=== PATIENT | female | born 1965 | race Caucasian/White ===

== ENCOUNTER 2019-05-30 16:37 | Inpatient (IN) | payer MEDICAID ==
[~2019-05-30] VITALS: Ht 162.6 cm; Wt 108.0 kg
[~2019-05-30 16:37] MED LIST: AMLO5TAB4 PO; METF-416 PO; SIMV20TA6 PO
[2019-05-30] MEDS ORDERED: SODIUM CHLORIDE 0.9% 1,000 ML IV ONE (19:05)
[2019-05-30] MEDS ORDERED: ONDANSETRON HCL 4MG/2ML INJ IV STA (19:05)
[2019-05-30] MEDS ORDERED: MAGNESIUM/ALUMINUM HYDROXIDE/SIMETHICONE 30ML UDC PO ONE (19:15)
[2019-05-30] MEDS ORDERED: FAMOTIDINE 20MG/2ML VIAL IV ONE (19:15)
[2019-05-30 19:42] LABS: BASOPHILS % 0.3 % (0.0-2.0); EOSINOPHILS % 0.7 % (0.0-5.0); HEMATOCRIT. 39.5 % (36.0-48.0); LYMPHOCYTES % 18.9 % (20.0-50.0); MEAN CORPUSCULAR HEMOGLOBIN 30.1 pg (28.0-32.0); MEAN CORPUSCULAR VOLUME 91.4 fL (81.0-99.0); MONOCYTES % 5.5 % (2.0-8.0); NEUTROPHILS % 74.6 % (40.0-76.0); PLATELET 257 x1000/uL (130-400); RED BLOOD CELL COUNT 4.33 mill/uL (4.2-5.4); RED CELL DISTRIBUTION WIDTH 14.5 % (11.6-14.6)
[2019-05-30 19:47] LABS: INR 1.1; PARTIAL THROMBOPLASTIN TIME 24.8 sec (23.4-31.0)
[2019-05-30 19:55] LABS: CHLORIDE 105 mEq/L (98-107)
[2019-05-30 19:59] LABS: ETHANOL BLOOD < 10 mg/dL
[2019-05-30] MEDS ORDERED: MORPHINE SULFATE 4 MG/ML CPJ (NOT FOR IM USE) IV ONE (21:45)
[2019-05-30] MEDS ORDERED: CLINDAMYCIN 600 MG in DEXTROSE 5% WATER 50 ML IV ONE (21:45)
[2019-05-30] MEDS ORDERED: ONDANSETRON HCL 4MG/2ML INJ IV ONE (21:45)
[2019-05-30] MEDS ORDERED: ONDANSETRON HCL 4MG/2ML INJ IV PRN (22:45)
[2019-05-30] MEDS ORDERED: CLINDAMYCIN 600MG PREMIX 50 ML IV NR (22:45)
[2019-05-30] MEDS ORDERED: IPRATROPIUM/ALBUTEROL 0.5-3(2.5)MG/3ML NEB NEB PRN (22:45)
[2019-05-30] MEDS ORDERED: ENOXAPARIN 40MG/0.4ML SYR SUBCUT SCH (22:45)
[2019-05-30] MEDS ORDERED: ACETAMINOPHEN 325MG TABLET PO PRN (22:45)
[2019-05-30] MEDS ORDERED: CLONIDINE 0.1MG TABLET PO PRN (22:45)
[2019-05-31] VITALS (7 sets, daily range): BP systolic 122–155; BP diastolic 64–85
[2019-05-31 00:16] LABS: CLARITY URINE CLEAR (CLEAR); COLOR URINE YELLOW (YELLOW); KETONES URINE TRACE (NEGATIVE); LEUKOCYTE ESTERASE URINE NEGATIVE (NEGATIVE); NITRITE URINE NEGATIVE (NEGATIVE); OCCULT BLOOD URINE NEGATIVE (NEGATIVE); PH URINE 6.5 (4.5-8.0); PROTEIN URINE NEGATIVE (NEGATIVE); SPECIFIC GRAVITY URINE 1.018 (1.005-1.030)
[2019-05-31 00:24] LABS: *AMPHETAMINES SCREEN URINE NEGATIVE (NEGATIVE); *BARBITURATES SCREEN URINE NEGATIVE (NEGATIVE); *BENZODIAZEPINES SCREEN URINE NEGATIVE (NEGATIVE); *COCAINE SCREEN URINE NEGATIVE (NEGATIVE)
[2019-05-31 00:25] LABS: CANNABINOID URINE SCREEN NEGATIVE (NEGATIVE); OPIATES URINE SCREEN PRESUMTIVE POSITIVE (NEGATIVE); PHENCYCLIDINE URINE SCREEN NEGATIVE (NEGATIVE)
[2019-05-31 00:27] LABS: METHADONE URINE SCREEN NEGATIVE (NEGATIVE)
[2019-05-31] MEDS ORDERED: DEXTROSE 50% WATER 50ML SYRINGE IV PRN (03:00)
[2019-05-31] MEDS: TRAMADOL 50MG TABLET PO PRN ×2 (03:55→21:49)
[2019-05-31] MEDS: INSULIN LISPRO 100 UNITS/ML SUBCUT SCH ×4 (06:07→21:10)
[2019-05-31] MEDS: BLOOD SUGAR DIAGNOSTIC STRIP TEST SCH ×4 (06:07→21:09)
[2019-05-31 06:49] LABS: BASOPHILS % 0.4 % (0.0-2.0); EOSINOPHILS % 0.8 % (0.0-5.0); HEMATOCRIT. 38.3 % (36.0-48.0); HEMOGLOBIN. 12.8 g/dL (12.0-16.0); LYMPHOCYTES % 30.4 % (20.0-50.0); MEAN CORPUSCULAR HEMOGLOBIN 30.2 pg (28.0-32.0); MEAN CORPUSCULAR VOLUME 90.4 fL (81.0-99.0); MEAN PLATELET VOLUME 9.2 fl (7.4-10.4); MONOCYTES % 8.3 % (2.0-8.0); NEUTROPHILS % 60.1 % (40.0-76.0); PLATELET 281 x1000/uL (130-400); RED BLOOD CELL COUNT 4.24 mill/uL (4.2-5.4); RED CELL DISTRIBUTION WIDTH 14.6 % (11.6-14.6)
[2019-05-31 06:55] LABS: CHLORIDE 108 mEq/L (98-107)
[2019-05-31 07:08] LABS: LDL CHOLESTEROL 140 mg/dL (5-100)
[2019-05-31 07:10] LABS: CREATINE KINASE 65 IU/L (26-192); HDL CHOLESTEROL 47 mg/dL (40-59)
[2019-05-31 07:18] LABS: CREATINE KINASE MB FRACTION < 1.0 ng/mL (0.5-3.6)
[2019-05-31] MEDS ORDERED: PNEUMOCOCCAL 23-VAL P-SAC VAC 0.5 ML IM ONE (09:00)
[2019-05-31] MEDS: FAMOTIDINE 20MG TABLET PO SCH ×2 (09:49→21:08)
[2019-05-31] MEDS: ENOXAPARIN 30MG/0.3ML SYR SUBCUT SCH ×2 (09:50→21:09)
[2019-05-31] MEDS: AMLODIPINE 5MG TABLET PO SCH (09:54)
[2019-05-31] MEDS: CLINDAMYCIN HCL 150MG CAPSULE PO SCH ×3 (10:46→21:48)
[2019-05-31] MEDS ORDERED: IOHEXOL-350 100 ML BOTTLE ONE (12:25)
[2019-05-31 16:07] LABS: CREATINE KINASE 66 IU/L (26-192)
[2019-05-31 16:08] LABS: CREATINE KINASE MB FRACTION < 1.0 ng/mL (0.5-3.6)
[2019-05-31] MEDS: LOSARTAN POTASSIUM 25 MG TABLET PO SCH ×2 (16:48→21:08)
[2019-05-31] MEDS: ATORVASTATIN CALCIUM 40MG TABLET PO SCH (21:08)
[2019-06-01] VITALS: BP 147/82
[2019-06-01 04:00] VITALS: BP 141/79
[2019-06-01] MEDS: CLINDAMYCIN HCL 150MG CAPSULE PO SCH ×3 (06:33→21:19)
[2019-06-01] MEDS: BLOOD SUGAR DIAGNOSTIC STRIP TEST SCH ×4 (06:39→21:20)
[2019-06-01] MEDS: INSULIN LISPRO 100 UNITS/ML SUBCUT SCH ×4 (06:39→21:20)
[2019-06-01 07:44] LABS: BASOPHILS % 0.8 % (0.0-2.0); CHLORIDE 105 mEq/L (98-107); EOSINOPHILS % 0.9 % (0.0-5.0); HEMATOCRIT. 42.1 % (36.0-48.0); LYMPHOCYTES % 32.3 % (20.0-50.0); MEAN CORPUSCULAR HEMOGLOBIN 30.1 pg (28.0-32.0); MEAN CORPUSCULAR VOLUME 90.6 fL (81.0-99.0); MONOCYTES % 8.3 % (2.0-8.0); NEUTROPHILS % 57.7 % (40.0-76.0); PLATELET 302 x1000/uL (130-400); RED BLOOD CELL COUNT 4.64 mill/uL (4.2-5.4); RED CELL DISTRIBUTION WIDTH 14.3 % (11.6-14.6)
[2019-06-01 08:00] VITALS: BP 147/88
[2019-06-01] MEDS: LOSARTAN POTASSIUM 25 MG TABLET PO SCH ×2 (08:17→21:19)
[2019-06-01] MEDS: FAMOTIDINE 20MG TABLET PO SCH ×2 (08:17→21:18)
[2019-06-01] MEDS: ENOXAPARIN 30MG/0.3ML SYR SUBCUT SCH ×2 (08:17→21:18)
[2019-06-01] MEDS: AMLODIPINE 5MG TABLET PO SCH (08:17)
[2019-06-01 12:00] VITALS: BP 115/82
[2019-06-01 16:00] VITALS: BP 127/81
[2019-06-01 20:00] VITALS: BP 136/85
[2019-06-01] MEDS: ATORVASTATIN CALCIUM 40MG TABLET PO SCH (21:18)
[2019-06-02] VITALS: BP 125/82
[2019-06-02 04:00] VITALS: BP 136/87
[2019-06-02] MEDS: CLINDAMYCIN HCL 150MG CAPSULE PO SCH ×2 (05:41→14:22)
[2019-06-02] MEDS: BLOOD SUGAR DIAGNOSTIC STRIP TEST SCH ×3 (05:46→17:14)
[2019-06-02] MEDS: INSULIN LISPRO 100 UNITS/ML SUBCUT SCH ×3 (06:16→17:34)
[2019-06-02 08:00] VITALS: BP 144/82
[2019-06-02 08:01] LABS: CHLORIDE 104 mEq/L (98-107)
[2019-06-02 08:02] LABS: BASOPHILS % 0.5 % (0.0-2.0); HEMATOCRIT. 41.3 % (36.0-48.0); HEMOGLOBIN. 13.8 g/dL (12.0-16.0); LYMPHOCYTES % 29.9 % (20.0-50.0); MEAN CORPUSCULAR HEMOGLOBIN 30.2 pg (28.0-32.0); MEAN CORPUSCULAR VOLUME 90.2 fL (81.0-99.0); MEAN PLATELET VOLUME 9.2 fl (7.4-10.4); MONOCYTES % 7.3 % (2.0-8.0); NEUTROPHILS % 61.3 % (40.0-76.0); PLATELET 293 x1000/uL (130-400); RED BLOOD CELL COUNT 4.58 mill/uL (4.2-5.4); RED CELL DISTRIBUTION WIDTH 14.5 % (11.6-14.6)
[2019-06-02] MEDS: FAMOTIDINE 20MG TABLET PO SCH (08:23)
[2019-06-02] MEDS: LOSARTAN POTASSIUM 25 MG TABLET PO SCH (08:23)
[2019-06-02] MEDS: ENOXAPARIN 30MG/0.3ML SYR SUBCUT SCH (08:23)
[2019-06-02] MEDS: AMLODIPINE 5MG TABLET PO SCH (08:23)
[2019-06-02 12:00] VITALS: BP 136/81
[2019-06-02 16:00] VITALS: BP 139/80
[2019-06-02 16:17] VITALS: BP 139/80
== END 2019-06-02 18:00 | disposition home or self-care (01) | DRG 203 ==
LOC: ER 16:37 → 5WST 22:16 → EDBEDREQTM 22:26 → EDBEDREQ 22:26 → ENRESERV 23:35
PROVIDERS: ADMIT Internal Medicine; ATTEND Internal Medicine
DX: M94.0 Chondrocostal junction syndrome [Tietze] (principal); E11.65 Type 2 diabetes mellitus with hyperglycemia; E66.9 Obesity, unspecified; E78.5 Hyperlipidemia, unspecified; I10 Essential (primary) hypertension; E78.00 Pure hypercholesterolemia, unspecified; R74.0 Nonspecific elevation of levels of transaminase and lactic acid dehydrogenase [LDH]; Z68.41 Body mass index [BMI] 40.0-44.9, adult; Z79.84 Long term (current) use of oral hypoglycemic drugs; Z90.710 Acquired absence of both cervix and uterus; Z88.0 Allergy status to penicillin; Z88.9 Allergy status to unspecified drugs, medicaments and biological substances
CPT/HCPCS: 36415; 71045; 71275; 78452; 80048; 80061; 80305; 80320; 81003; 82550; 82553; 82962; 83036; 83735; 83880; 84484; 90732; 93005; 93017; 93306; 93970; 99285; A9500; J1650; J1815; J2270; J2405; J3490; J7030; J7060; Q9967; G0480